=== PATIENT | male | born 1955 | race Caucasian/White ===

== ENCOUNTER 2017-01-26 10:32 | Day surgery (SDC) | payer BC ==
[~2017-01-26] VITALS: Ht 175.3 cm; Wt 122.2 kg
[2017-01-26] VITALS (17 sets, daily range): BP systolic 123–163; BP diastolic 62–89; PULSE 71–80; RESP 12–26; TEMP 97.1–97.6; O2SAT 94–100; Ht 175.3 cm; Wt 122.2 kg
[~2017-01-26 10:32] MED LIST: GABA-222 PO; LIDOCAINE 1% (10mg/ml) 2ml SDV INJ ONE; LISI-127 PO; OMEP20CA81 PO; PRAM1TAB4 PO; PRAV10TA42 PO; TADA5TAB PO
--- OUTSIDE RECORDS SUMMARY | 2017-01-26 10:40 | XMS REPORT | Continuity of Care Document ---
Author Author [facility] Organization [facility] Address Unknown Phone Unavailable Support Name Relationship Address Phone NICHO ANDRADE MD Caregiver [address] [facility] [address] [place] [id number] FRANK BARNES Caregiver [address] [place] [place], [place] [id number] TIFFANIE BANUELOS Next Of Kin [address] [place] [address] Insurance Providers Payer Name Policy Number Subscriber Name Relationship [facility] [id number] Matthew Banuelos 19 Self Advance Directives Directive Response Recorded Date/Time Ordered Resuscitation Status Full Code 11/10/14 2:07pm Resuscitation Documents on File No 11/10/14 1:38pm Problems No known problems or medical conditions. Medications Medication Dose Route Sig Days/Qty Instructions Order Date Discontinued Date Status Gabapentin 600 Mg PO BEDTIME 03/02/11 Active Lisinopril 10 Mg PO DAILY 03/02/11 Active Pramipexole Di-Hcl 1 Mg PO BEDTIME 03/02/11 Active Omeprazole 20 Mg PO BEDTIME 03/02/11 Active Tadalafil 1 Tab PO NEEDED 11/10/14 Active [Pravasta] 1 Tab PO DAILY 11/10/14 Active Social History Social History Problem Response Recorded Date/Time Chewing Tobacco Status No 11/10/2014 8:40am Hx Substance Use No 11/10/2014 8:40am Hx Alcohol Use No 11/10/2014 8:40am Has the pt used tobacco in the last 12 months No 11/10/2014 8:40am Query Response Start Date Stop Date Smoking Status Former smoker Hospital Discharge Instructions No hospital discharge instructions. Plan of Care No plan of care. Functional Status No functional status results. Allergies, Adverse Reactions, Alerts Allergen Type Severity Reaction Status Last Updated No Known Drug Allergies Allergy Unknown Active 03/02/11 Immunizations Name Given Type Hx Influenza Vaccination No Historical Hx Pneumococcal Vaccination No Historical Hx Influenza Vaccination No Historical Vital Signs Acute Vital Signs Vital Response Date/Time Temperature (Fahrenheit) 97.0 deg F (96.8 - 99.1) Temperature (Calculated Celsius) 36.16449 degrees C (36.0 - 37.3) Temperature Source Temporal Pulse Rate (adult) 75 bpm (60 - 100) Respiratory Rate 16 breaths/min (10 - 20) O2 Sat by Pulse Oximetry 96 % (90 - 100) Oxygen Delivery Method Room Air Blood Pressure 118/76 mm Hg Blood Pressure Source Automatic Cuff Height 5 ft 9 in Weight 255 lb Body Mass Index 37.0 kg/m^2 Results No known relevant diagnostic tests, laboratory data and/or discharge summary. Procedures Procedure Status Date Provider(s) Colonoscopy completed 11/11/14 NICHO ANDRADE MD
--- OUTSIDE RECORDS SUMMARY | 2017-01-26 10:40 | XMS REPORT | Referral Summary ---
Author Author [facility] Organization [facility] Address Unknown Phone Unavailable Care Team Providers Care Magento Web Developer Name Role Phone Kamala Horvath Primary Care Physician [phone] Encounter VC Date(s): 01/11/17 - 01/11/17 [facility] [address] [place] [address] SHADIA Mason [address] Discharge Diagnosis: Mass of shoulder region Discharge Disposition: 01-Home or Self Care Attending Physician: Antonio Quach MD Admitting Physician: Antonio Quach MD Referring Physician: Ajay Horvath MD Vital Signs Most recent to 1 oldest [Reference Range]: Temperature Tympanic 36.4 degC [36.6-38.1 degC] *LOW* (01/11/17 2:59 PM) Peripheral Pulse 73 bpm Rate [60-100 bpm] (01/11/17 2:59 PM) Blood Pressure 124/78 mmHg [90-140/60-90 mmHg] (01/11/17 2:59 PM) SpO2 96 % (01/11/17 2:59 PM) Problem List Condition Effective Dates Status Health Status Informant Morbid Active patient obesity(Confirmed) Allergies, Adverse Reactions, Alerts No Known Medication Allergies Medications gabapentin 300 mg oral capsule 900 mg 3 caps, Oral, Daily, 0 Refill(s) Start Date: 01/11/17 Status: Ordered lisinopril 10 mg oral tablet 10 mg 1 tabs, Oral, Daily, # 30 tabs, 0 Refill(s) Start Date: 01/04/17 Status: Ordered Mirapex 0.5 mg oral tablet 1 mg 2 tabs, Oral, Bedtime (once a day), 0 Refill(s) Start Date: 01/04/17 Status: Ordered Mirapex ER 1.5 mg oral tablet, extended release 1.5 mg 1 tabs, Oral, Daily, # 30 tabs, 0 Refill(s) Start Date: 01/11/17 Status: Ordered pravastatin 10 mg oral tablet 10 mg 1 tabs, Oral, Daily, # 30 tabs, 0 Refill(s) Start Date: 01/04/17 Status: Ordered PriLOSEC 20 mg oral delayed release capsule 20 mg 1 caps, Oral, Daily, # 30 caps, 0 Refill(s) Start Date: 01/04/17 Status: Ordered sildenafil 20 mg oral tablet See Instructions, 2-5 tabs Oral as needed with sexual activity, 0 Refill(s) Start Date: 01/04/17 Status: Ordered Tylenol Caplet 325 mg oral tablet 650 mg 2 tabs, Oral, TID, as needed for pain, 0 Refill(s) Start Date: 01/04/17 Status: Ordered Results Chemistry Most recent to 1 oldest [Reference Range]: BUN [8-26 mg/dL] 15 mg/dL (01/11/17 4:06 PM) Creatinine Lvl 1.40 mg/dL [0.72-1.25 mg/dL] *HI* (01/11/17 4:06 PM) eGFR [>60 mL/min] 52 mL/min 1 *ABN* (01/11/17 4:06 PM) 1Result Comment: Multiply eGFR results by 1.21 for race. Immunizations No data available for this section Procedures Procedure Date Related Diagnosis Body Site 2013 Social History Social History Type Response Smoking Status Former smoker; Type: Cigarettes; Date Last Use: 8 years ago Assessment and Plan Extracted from: Title: Office Visit Note Author: Antonio Quach MD Date: 01/11/17 Assessment/Plan 1.Mass of shoulder region Ordered: Office Visit Level 4 New [id number] Plan: MRI of soft tissue mass involving right posterior shoulder/scapular region. Proceed with excisional biopsy if soft tissuemass consistent with benign lipoma. If masshighly suggestive forsarcomapatient willbe sent [facility] care [facility] I informed the patient that he does have a fairly large soft tissue massinvolving his right posterior shoulderthat has somewhat unusual physical findings. The mass is consistent with that of a benign lipoma and is soft and freely mobilewhen his right upper extremity is notabducted. However with theright upper extremity isslightlyabductedthemass becomes quite hardand somewhat fixated in nature. It is my clinical intuition that the patient likely has aintramuscularbenign lipomawhich changesupon physical examinationwith contraction of the muscleby abducting the right upper extremity. Nonetheless it was my recommendation that we proceed initially with an MRIof thissoft tissue mass. If upon MRI the massinvolving the right posterior shoulder/scapular region is more consistent with that of a benign lipomawould recommend proceeding with an excisional biopsy here at [facility]. If on the other hand MRI findings are suggestive for that of aliposarcomaI informed the patient that Iwouldrecommend that hebe sent onto a tertiary care facility where a orthopediconcologic surgeon is present such [facility] in [place]. The above proposed algorithm/plan was discussed with patient and . The understood and agreed.
--- OUTSIDE RECORDS SUMMARY | 2017-01-26 10:40 | XMS REPORT | Summary of Care ---
Author Author Sedrick Patel M.D. Organization Unknown Address [address] [place], [place] [id number] Phone Unavailable Care Team Providers Care Fabric Normalizer Name Role Phone Bj Patel M.D. Unavailable Unavailable Ajay Horvath PP Unavailable Unavailable Unavailable Functional Status Functional Status Health Issues* Name Dates Details Functional status health issues are not documented Status: Cognitive Status Health Issues* Name Dates Details Cognitive status health issues are not documented Status: Problems Name Dates Details Restless legs syndrome (333.94, G25.81) Status: Active Medications Name Dates Details Levitra 10 MG Oral Tablet TAKE DIRECTED. * Started 15-Mar-2008 ActiveGabapentin 300 MG Oral Capsule TAKE TWO CAPSULES AT BEDTIME * Quantity: 180 Refills: 3 Sedrick Patel M.D.* Started 15-Mar-2008 ActiveLisinopril 10 MG Oral Tablet TAKE 1 TABLET DAILY. * Refills: 0 * Started 06-Oct-2009 ActivePriLOSEC OTC 20 MG Oral Tablet Delayed Release Take 1 tablet daily * Refills: 0 * Started 06-Oct-2009 ActivePramipexole Dihydrochloride 1.5 MG Oral Tablet Take 1/2 tab at noon and one tab at bedtime * Quantity: 135 Refills: 3 Sedrick Patel M.D.* Started 27-Jan-2010 ActivePravastatin Sodium 20 MG Oral Tablet TAKE 1 TABLET DAILY. * Refills: 0 Sedrick Patel M.D.* Started Active Allergies and Adverse Reactions Name Dates Details No Known Drug Allergies Status: Active Procedures Procedure Dates Details Procedures not documented Immunization Name Dates Details Immunizations not documented Social History Name Dates Details Smoking Status* Former smoker Vital Signs Date Test Result Details 06-Jul-2015 08:07 BP Systolic 136 mm[Hg] Status: BP Diastolic 80 mm[Hg] Status: Heart Rate 82 /min Status: Weight 256.8 lb Status: Body Mass Index Calculated 37.92 kg/m2 Status: Body Surface Area Calculated 2.3 m2 Status: Results Date Description Value Details Results not documented Plan of Care Planned Observations* Name Dates Details Planned Goals not documented Goal Planned Encounters* Appointment; Provider: Sedrick Patel On 04-Jan-2016 08:00 Instructions * Instructions not documented Encounters Appointment; Sedrick Patel Diagnosis: Problem not documented On 06-Jul-2015 08:00 Appointment; Sedrick Patel Encounter Diagnosis: Problem not documented On 06-Jan-2015 08:00 Appointment; Sedrick Patel Encounter Diagnosis: Problem not documented On 01-Dec-2014 08:00 Appointment; Sedrick Patel Diagnosis: Problem not documented On 08:00 Appointment; Sedrick Patel Diagnosis: Problem not documented On 02-Dec-2013 08:00
--- OUTSIDE RECORDS SUMMARY | 2017-01-26 10:41 | XMS REPORT | Summary of Care ---
Author Author Sedrick Patel M.D. Organization Unknown Address Unknown Phone Unavailable Care Team Providers Care Board Saw Runner Name Role Phone Bj Patel M.D. 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 * Start 15-Mar-2008 Active Gabapentin 300 MG Oral Capsule TAKE 2 CAPSULES BY MOUTH AT BEDTIME * Quantity: 180 Refills: 3 Sedrick Patel M.D. * Start 15-Mar-2008 Active Lisinopril 10 MG Oral Tablet TAKE 1 TABLET DAILY. * Refills: 0 * Start 06-Oct-2009 Active PriLOSEC OTC 20 MG Oral Tablet Delayed Release Take 1 tablet daily * Refills: 0 * Start 06-Oct-2009 Active Pramipexole Dihydrochloride 1.5 MG Oral Tablet Take 1 tablet twice daily * Quantity: 180 Refills: 3 Sedrick Patel M.D. * Start 27-Jan-2010 Active Pravastatin Sodium 20 MG Oral Tablet TAKE 1 TABLET DAILY. * Refills: 0 Sedrick Patel M.D. * Start Active Allergies and Adverse Reactions Name Dates Details No Known Drug Allergies (Allergy) Status: Active Procedures Procedure Dates Details Procedures not documented Immunization Name Dates Details Immunizations not documented Social History Name Dates Details - Status: Name Dates Details Former smoker Vital Signs Date Test Result Details 02-Jan-2017 08:20 BP Systolic 140 mm[Hg] Status: Comments: Location: ; Position: BP Diastolic 82 mm[Hg] Status: Comments: Location: ; Position: Heart Rate 77 /min Status: Comments: Location: ; Weight 268 lb Status: Physical Findings 95 Status: Comments: O2 Saturation Body Mass Index Calculated 39.58 kg/m2 Status: Body Surface Area Calculated 2.34 m2 Status: Results Date Description Value Details Results not documented Plan of Care Name Dates Details Planned Observations Planned Goals not documented Planned Encounters Appointment; Provider: Sedrick Patel M.D. On 10-Jul-2017 08:00 Instructions Name Dates Details Instructions not documented Encounters Appointment; Sedrick Patel M.D. Encounter Diagnosis: Problem not documented On 04-Jul-2016 08:00 Appointment; Sedrick Patel M.D. Encounter Diagnosis: Problem not documented On 04-Jan-2016 08:00 Appointment; Sedrick Patel M.D. Encounter Diagnosis: Problem not documented On 06-Jul-2015 08:00 Appointment; Sedrick Patel M.D. Encounter Diagnosis: Problem not documented On 06-Jan-2015 08:00
--- OUTSIDE RECORDS SUMMARY | 2017-01-26 10:41 | XMS REPORT | Summary of Care ---
Author Author Sedrick Patel M.D. Organization Unknown Address Unknown Phone Unavailable Care Team Providers Care Byproducts Operator Name Role Phone Bj Patel M.D. Unavailable [...] Active Pramipexole Dihydrochloride 1.5 MG Oral Tablet TAKE 1/2 TABLET AT NOON & 1 TABLET AT BEDTIME * Quantity: 135 Refills: 3 Sedrick Patel M.D. * Start [...] smoker Vital Signs Date Test Result Details 04-Jul-2016 08:10 BP Systolic 128 mm[Hg] Status: Comments: Location: RUE; Position: Sitting BP Diastolic 74 mm[Hg] Status: Comments: Location: RUE; Position: Sitting Heart Rate 82 /min Status: Comments: Location: ; Weight 265.2 lb Status: Physical Findings 96 Status: Comments: O2 Saturation Body Mass Index Calculated 39.16 kg/m2 Status: Body Surface Area Calculated 2.33 m2 Status: Results Date Description Value Details Results not documented Plan of Care Name Dates Details Planned Observations Planned Goals not documented Planned Encounters Appointment; Provider: Sedrick Patel M.D. On 02-Jan-2017 08:15 Instructions Name Dates Details Instructions not documented Encounters Appointment; Sedrick Patel M.D. Encounter Diagnosis: Problem not documented On 04-Jan-2016 08:00 Appointment; Sedrick Patel M.D. Encounter Diagnosis: Problem not documented On 06-Jul-2015 08:00 Appointment; Sedrick Patel M.D. Encounter Diagnosis: Problem not documented On 06-Jan-2015 08:00 Appointment; Sedrick Patel M.D. Encounter Diagnosis: Problem not documented On 01-Dec-2014 08:00
--- OUTSIDE RECORDS SUMMARY | 2017-01-26 10:41 | XMS REPORT | Summary of Care ---
Author Author Sedrick Patel M.D. Organization Unknown Address [address] [place], [place] [id number] Phone Unavailable Care Team Providers Care Traveling Clerk Name Role Phone Amanda Maldonado, Bj Unavailable Unavailable Ajay Horvath PP Unavailable Unavailable [...] smoker Vital Signs Date Test Result Details 06-Jan-2015 08:00 BP Systolic 132 mm[Hg] Status: BP Diastolic 74 mm[Hg] Status: Heart Rate 86 /min Status: Weight 261.6 lb Status: Body Mass Index Calculated 38.63 kg/m2 Status: Body Surface Area Calculated 2.32 m2 Status: Results Date Description Value Details Results not documented Plan of Care Planned Observations* Name Dates Details Planned Goals not documented Goal Planned Encounters* Appointment; Provider: Sedrick Patel On 06-Jul-2015 08:00 Instructions * Instructions not documented Encounters Appointment; Sedrick Patel Diagnosis: Problem not documented On 06-Jan-2015 08:00 Appointment; Sedrick Patel Encounter Diagnosis: Problem not documented On 01-Dec-2014 08:00 Appointment; Sedrick Patel Encounter Diagnosis: Problem not documented On 08:00 Appointment; Sedrick Patel Diagnosis: Problem not documented On 02-Dec-2013 08:00 Appointment; Sedrick Patel Diagnosis: Problem not documented On 08:15
--- OUTSIDE RECORDS SUMMARY | 2017-01-26 10:41 | XMS REPORT | Summary of Care ---
Author Author Sedrick Patel M.D. Organization Unknown Address [address] [place], [place] [phone] Phone Unavailable Care Team Providers Care Client Manager Name Role Phone Bj Patel M.D. Unavailable Unavailable Nuria, Wilfredo PP Unavailable Unavailable Unavailable Functional Status Functional [...] smoker Vital Signs Date Test Result Details 04-Jan-2016 08:20 BP Systolic 128 mm[Hg] Status: BP Diastolic 78 mm[Hg] Status: Heart Rate 80 /min Status: Weight 270.8 lb Status: Body Mass Index Calculated 39.99 kg/m2 Status: Body Surface Area Calculated 2.35 m2 Status: Results Date Description Value Details Results not documented Plan of Care Planned Observations* Name Dates Details Planned Goals not documented Goal Planned Encounters* Appointment; Provider: Sedrick Patel On 04-Jul-2016 08:00 Instructions * Instructions not documented Encounters Appointment; Sedrick Patel Encounter Diagnosis: Problem not documented On 04-Jan-2016 08:00 Appointment; Sedrick Patel Encounter Diagnosis: Problem not documented On 06-Jul-2015 08:00 Appointment; Sedrick Patel Encounter Diagnosis: Problem not documented On 06-Jan-2015 08:00 Appointment; Sedrick Patel Encounter Diagnosis: Problem not documented On 01-Dec-2014 08:00 Appointment; Sedrick Patel Encounter Diagnosis: Problem not documented On 08:00
--- OUTSIDE RECORDS SUMMARY | 2017-01-26 10:41 | XMS REPORT | Summary of Care ---
Author Author Sedrick Patel M.D. Organization Unknown Address [address] [place], [place] [id number] Phone Unavailable Care Team Providers Care Neck Fitter Name Role Phone Bj Patel M.D. Unavailable [...] CAPSULES AT BEDTIME * Quantity: 180 Refills: 0 Sedrick Patel M.D.* Started 15-Mar-2008 ActiveLisinopril 10 [...] Instructions * Instructions not documented Encounters Appointment; Sderick Patel Encounter Diagnosis: Problem not documented On 04-Jan-2016 08:00 Appointment; Sedrick Patel Encounter Diagnosis: Problem not documented On 06-Jul-2015 08:00 Appointment; Sedrick Patel Encounter Diagnosis: Problem not documented On 06-Jan-2015 08:00 Appointment; Sedrick Patel Encounter Diagnosis: Problem not documented On 01-Dec-2014 08:00 Appointment; Sedrick Patel Encounter Diagnosis: Problem not documented On 08:00
--- OUTSIDE RECORDS SUMMARY | 2017-01-26 10:41 | XMS REPORT | Summary of Care ---
Author Author Amanda Maldonado, Sedrick Lorenzo Organization Unknown Address [address] [place], [place] [phone] Phone Unavailable Care Team Providers Care Bull Ladle Tender Name Role Phone Horvath, Ajay Unavailable Unavailable Unavailable Unavailable Functional Status Functional Status Health Issues* Name Dates Details No known functional status health issues Status: Cognitive Status Health Issues* Name Dates Details No known cognitive status health issues Status: Problems Name Dates Details Restless legs syndrome (333.94, G25.81) Status: Active Medications Name Dates Details Levitra 10 MG Oral Tablet TAKE DIRECTED. * Started 15-Mar-2008 ActiveGabapentin 300 MG Oral Capsule TAKE TWO CAPSULES AT BEDTIME * Quantity: 180 Capsule Refills: 3 * Started 15-Mar-2008 ActiveLisinopril 10 MG Oral Tablet TAKE 1 TABLET DAILY. * Refills: 0 * Started 06-Oct-2009 ActivePriLOSEC OTC 20 MG Oral Tablet Delayed Release Take 1 tablet daily * Refills: 0 * Started 06-Oct-2009 ActivePramipexole Dihydrochloride 1.5 MG Oral Tablet Take 1/2 tab at noon and one tab at bedtime * Quantity: 135 Tablet Refills: 3 * Started 27-Jan-2010 ActivePravastatin Sodium 20 MG Oral Tablet TAKE 1 TABLET DAILY. * Refills: 0 * Started Active Allergies and Adverse Reactions Name Dates Details No Known Drug Allergies Status: Active Procedures Procedure Dates Details Surgical history not documented Procedures not documented Immunization Name Dates Details Immunizations not documented Social History Name Dates Details Former Smoker Smoking Status* Former smoker Vital Signs Date Test Result Details 08:26 BP Systolic 132 mm[Hg] Status: BP Diastolic 70 mm[Hg] Status: Heart Rate 80 /min Status: Weight 251.6 lb Status: Body Mass Index Calculated 37.16 kg/m2 Status: Body Surface Area Calculated 2.28 Status: Results Date Description Value Details Results not documented Plan of Care Instructions* Instructions not documented Planned Observations* Name Dates Details Planned Goals not documented Goal Planned Encounters* Appointment; Provider: Sedrick Patel On 01-Dec-2014 08:00 Instructions * No Known Instructions Encounters Appointment; Sedrick Patel Encounter Diagnosis: Problem not documented On 08:00 Appointment; Sedrick Patel Encounter Diagnosis: Problem not documented On 02-Dec-2013 08:00 Appointment; Sedrick Patel Encounter Diagnosis: Problem not documented On 08:15 Appointment; Sedrick Patel Encounter Diagnosis: Problem not documented On 26-Nov-2012 08:00
[2017-01-26] MEDS: LR 1,000 ML IV SCH ×2 (11:27→13:54)
--- NOTE | 2017-01-26 11:33 | ANESPREOP ---
Anesthesia Record Date and Time DATE: 01/26/17 TIME: 11:30 Pre-Op Diagnosis lypoma rt. shoulder Proposed Surgical Procedure EXCISION OF MASS RIGHT SHOULDER Allergies: Coded Allergies: No Known Drug Allergies (Verified Allergy, Unknown, 01/26/17) Ht/Wt/BMI Height: 5 ' 9.00 " Weight: 122.200 kg BMI: 39.8 kg/m2 Vital Signs Date Time Temp Pulse Resp B/P Pulse Ox O2 Delivery O2 Flow Rate FiO2 01/26/17 10:41 97.5 73 12 160/80 97 Room Air Medications Inpatient Medications Current Medications Medications (Trade) Dose Ordered Sig/Kirsten Start Time Stop Time Status Last Admin Dose Admin Lactated Ringer's (Lactated Ringers) 1,000 ml @ 50 mls/hr Q20H 01/26/17 07:00 01/26/17 11:27 50 MLS/HR Gabapentin (Gabapentin) 600 Mg Tablet, 600 MG PO HS, (Reported) Lisinopril (Lisinopril) 10 Mg Tablet, 10 MG PO DAILY, (Reported) Omeprazole (Prilosec) 20 Mg Capsule.dr, 20 MG PO HS, (Reported) Pramipexole Di-Hcl (Mirapex) 1 Mg Tablet, 1 MG PO HS, (Reported) Pravastatin Sodium (Pravastatin Sodium) 10 Mg Tablet, 1 TAB PO DAILY, (Reported) Tadalafil (Cialis) 5 Mg Tablet, 1 TAB PO PRN, (Reported) Currently on Beta Alisha: Yes Medical/Surgical History Anesthesia PMH: Reports: *Hypertension (TAKES MEDS), Anesthesia Reactions (NO AIRWAY ISSUES), Obesity, Reflux, Denies: *Diabetes, Arthritis, Cancer, Clotting Problems, Glaucoma, Malignant Hyperthermia, Renal Disease, Sleep Apnea, Thyroid Disease Smoking Status: Former smoker Has pt. smoked today?: No Use Chewing Tobacco?: No Second Hand Exposure: No Substance Use Type: does not use, unknown Substance last used: unknown Alcohol Intake: rarely Last Drink: unknown Past Surgical History Orthopedic Surgeries: Abdominal Surgeries: Genitourinary Surgeries: Cardiac Surgeries: Endocrine Surgeries: Reproductive Surgeries: Neurological Surgeries: Ear Surgeries: Nose Surgeries: Throat Surgeries: Other Surgeries: Yes - VARICOCELE Anesthesia Adverse Reactions: FOUND none Family Hx of Anesthesia Advers: none Hx of Motion Sickness: No Pertinent Findings EKG Rhythm: Sinus Rhythm Physical Exam Respiratory: Bilat breath sounds equal, Lungs clear Cardiovascular: FOUND Regular rate, rhythm, FOUND No murmur Airway Assessment Mallampati Score: II TMD: 3 Fingerbreadths Neck Extension: Fair Overall Assessment: May Be Diff Mask Vent., May Be Diff Intubation ASA: 2 Plan Anesthesia Plan: GETA Discussion Discussed risks/options/alternatives of anesthesia and questions answered. Patient consents. Nursing pain assessment noted. Present: Spouse Attestation Statement Prior to the delivery of any anesthetic medication, I examined the patient, developed the plan, obtained the patient's consent and discussed the risk and benefits of the procedure with the patient/guardian. ASH LANDIN THIRD LOADER Jan 26, 2017 11:33
[2017-01-26] MEDS ORDERED: PROPOFOL 200mg 20 ML IV ONE (12:15)
[2017-01-26] MEDS ORDERED: BUPIVACAINE 0.25%/EPI 1:200,000 30ml SDV ONE (12:16)
[2017-01-26] MEDS ORDERED: ROCURONIUM 50mg/5ml INJECTION IV ONE (12:36)
[2017-01-26] MEDS ORDERED: FENTANYL 100mcg/2ml INJECTION ONE ×2 (12:46→12:57)
[2017-01-26] MEDS ORDERED: ONDANSETRON 4mg/2ml INJECTION ONE (12:54)
[2017-01-26] MEDS ORDERED: EPHEDRINE SULFATE 50mg/ml INJECTION ONE (13:06)
[2017-01-26] MEDS ORDERED: SUGAMMADEX 200 MG/2 ML INJECTION IV ONE (13:13)
[2017-01-26] MEDS ORDERED: HYDR-4246 PO (13:40)
[2017-01-26] MEDS ORDERED: IBUP-1724 PO (13:40)
[2017-01-26] MEDS ORDERED: POLY17PO6 PO (13:40)
--- NOTE | 2017-01-26 14:10 | ANESPO ---
Post-Op Note Date 01/26/17 Time: 14:05 Status Pt Participated in Evaluation: Pt participated in person Vital Signs Date Time Temp Pulse Resp B/P Pulse Ox O2 Delivery O2 Flow Rate FiO2 01/26/17 13:36 97.6 77 14 123/68 100 Mask 5.00 Respiratory Function: Airway patent, Regular respirations Cardiovascular Function: Regular pulse Mental Status: Alert/oriented Pain Level Intensity: 3 Hydration: IV infusing Complications during Recovery None apparent Follow-Up Instructions Instructions Per Surgeon NICHO PERAZA CRNA Jan 26, 2017 14:10
[2017-01-26] MEDS ORDERED: KETOROLAC 30mg/ml INJECTION IV PRN (14:15)
[2017-01-26] MEDS ORDERED: HYDROCODONE/APAP 5 mg/325 mg TABLET PO PRN (14:30)
--- NOTE | 2017-01-26 14:51 | ANESPO ---
Post-Op Note Date 01/26/17 Time: 14:50 Status Pt Participated in Evaluation: Pt participated in person Vital Signs Date Time Temp Pulse Resp B/P Pulse Ox O2 Delivery O2 Flow Rate FiO2 01/26/17 14:21 97.1 75 16 147/80 94 Room Air 01/26/17 13:40 5.00 Respiratory Function: Airway patent, Regular respirations Cardiovascular Function: Regular pulse Mental Status: Alert/oriented Pain Level Intensity: 5 Hydration: IV infusing Complications during Recovery None apparent Post-Anesthesia Notes [email or web address]. [email or web address] Follow-Up Instructions Instructions Per Surgeon Additional Information none ASH LANDIN CRNA Jan 26, 2017 14:51
--- NOTE | 2017-01-26 15:20 | NUR ---
DISCHARGE INSTRUCTIONS PATIENT AND PATIENT SPOUSE GIVEN INSTRUCTION ON CARE AND DRAINAGE OF TYSON DRAIN. PATIENT AND PATIENT SPOUSE VERBALIZE UNDERSTANDING. DISCHARGE INSTRUCTIONS GIVEN, AND BOTH VERBALIZE UNDERSTANDING.
--- NOTE | 2017-01-26 15:40 | NUR ---
STATUS SLING PLACED TO RIGHT ARM FOR PATIENT COMFORT PER HIS REQUEST AND PER APPROVAL OF STONEY BINGHAM APRN.
--- NOTE | 2017-01-27 07:08 | OPNOTEF ---
DATE OF SERVICE 01/26/2017 SURGEON Antonio Quach MD PREOPERATIVE DIAGNOSIS Subcutaneous mass involving right scapular region. POSTOPERATIVE DIAGNOSIS Subcutaneous mass involving right scapular region. PROCEDURE Excisional biopsy of a subcutaneous mass involving right scapular region. Mass excised - 9 cm x 13 cm. ANESTHESIA General endotracheal and local. BRIEF HISTORY/INDICATIONS Mr. Joseph is a 61-year-old gentleman who recently presented to my office as a result of a subcutaneous mass that was involving his right scapular region. The patient stated it was indeed causing him an element of pain or discomfort. Upon examination the patient was found to have a soft, mobile mass within the right scapular region. When the patient did "lift his arm upward" this mass became fairly firm and discrete in nature. 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 Given its size and the fact that upon physical examination at times it did appear somewhat more firm, I elected to proceed with a preoperative MRI. MRI did return revealing that of a probable lipoma. Radiology also stated, however, that a low grade sarcoma could not be completely ruled out. Given the benign features of this mass noted on MRI as well as upon physical examination, it was my recommendation that we proceed with an excisional biopsy. The patient presents today to undergo this procedure. For completeness, please refer to notes included in the patient's chart. DESCRIPTION OF PROCEDURE After informed consent was obtained the patient was brought to the operative suite and placed on the table in a left lateral decubitus position. After establishment of general anesthesia and after the area of concern had been prepped and draped in a sterile fashion, a formal time-out was then completed. Next 0.25% Marcaine with epinephrine was injected overlying the palpable mass involving the right scapular region. An 8-10 cm incision was then made overlying the area of analgesia in a longitudinal fashion. Dissection was carried down through deep subcuticular tissues to underlying enveloping fascia. Subcutaneous mass itself was beneath the enveloping fascia as seen on MRI scan. Fascia was then opened with the use of electrocautery. One could then see a well encapsulated benign-appearing lipoma/fatty tumor within the midportion of the infraspinatus muscle. The mass was not contiguous with the muscle and there was a tissue plane between the mass and the muscle itself. There were some locations where the mass was somewhat adherent to the adjacent muscle fibers. In this situation the muscle fibers were divided and left adherent to the mass itself. The mass was able to be completely excised in its entirety. The mass was placed upon the Cabrales stand and upon the Cabrales stand measured 13 cm x 9 cm. Attention then focused back to the surgical field. Meticulous hemostasis was obtained with the use of electrocautery. A Kamran drain was then placed at the excisional biopsy site within the infraspinatus muscle and allowed to exit just slightly cephalad to the longitudinal incision. A portion of the infraspinatus muscle was then imbricated overlying the drain in a running fashion with 3-0 Vicryl. The fascia that had been opened was also closed in a running fashion with 3-0 Vicryl. Deep subcutaneous tissue was then reapproximated in a running fashion with 3-0 Vicryl. Skin itself was then closed in a running subcuticular fashion with 4-0 Monocryl. Dermabond was then placed overlying the incision. The patient is in the process of awakening from his anesthetic and will be sent back to the recovery room once deemed in stable condition. RUTH
== END 2017-01-26 15:44 | disposition home or self-care (01) ==
LOC: SCU 10:32
PROVIDERS: ATTEND Surgery
DX: D17.21 Benign lipomatous neoplasm of skin and subcutaneous tissue of right arm (principal); I10 Essential (primary) hypertension; K21.9 Gastro-esophageal reflux disease without esophagitis; Z79.899 Other long term (current) drug therapy; Z87.891 Personal history of nicotine dependence
CPT/HCPCS: 23073; J0330; J1885; J2405; J2704; J3010; J7120; S0020